=== PATIENT | male | born 1990 | race Caucasian/White ===

== ENCOUNTER 2022-05-19 10:12 | Emergency (ER) | payer MEDICAID ==
[~2022-05-19] VITALS: Ht 177.8 cm; Wt 90.0 kg
[2022-05-19 10:44] VITALS: BP 143/83
[2022-05-19] MEDS ORDERED: cefTRIAXone SOD 1,000 MG VL IM ONE (11:00)
[2022-05-19] MEDS ORDERED: methylPREDNISolone SOD SUCC 125 MG/2 ML VL IM ONE (11:00)
[2022-05-19] MEDS ORDERED: AZIT500T66 PO (11:08)
[2022-05-19] MEDS ORDERED: PROM1SOL4 PO (11:08)
== END 2022-05-19 11:27 | disposition home or self-care (01) ==
LOC: ER 10:12
DX: J03.90 Acute tonsillitis, unspecified (principal)
CPT/HCPCS: 96372; 99284; J0696; J2930